=== PATIENT | female | born 1965 | race Caucasian/White ===

== ENCOUNTER 2023-12-13 11:10 | Inpatient (IN) ==
[2023-12-13] MEDS ORDERED: Al Hydrox/Mg Hydrox/Simet LIQ 30 ML UDC PO PRN (13:25)
[2023-12-13] MEDS ORDERED: OLANZapine 5 mg TAB *ODT PO PRN (13:29)
[2023-12-13 14:35] LABS: Urine Benzodiazepine Screen None Detected (None Detect); Urine Cannabinoids Screen None Detected (None Detect); Urine Opiates Screen None Detected (None Detect)
[2023-12-14] MEDS: Vitamin THERAPEUTIC TAB PO SCH (09:54)
[2023-12-14] MEDS: Clotrimazole 1% CREAM 30 gm TOPICAL SCH (09:54)
[2023-12-14] MEDS: Clotrimazole 1% CREAM 45 GM TOPICAL SCH (15:42)
[2023-12-29 12:17] LABS: HDL Cholesterol 50.2 mg/dL
[2024-01-01 09:28] VITALS: BP 135/83
== END 2024-01-03 09:30 | DRG 885 ==
LOC: ED 11:10 → EDHOLD 13:25 → BSU 14:11
PROVIDERS: ADMIT Student in an Organized Health Care Education/Training Program; ATTEND Psychiatry & Neurology Psychiatry